=== PATIENT | male | born 1975 | race Two or more races ===

== ENCOUNTER 2019-01-30 19:51 | Inpatient (IN) | payer MEDICAID ==
[~2019-01-30] VITALS: Ht 182.9 cm; Wt 92.2 kg
--- NOTE | 2019-01-30 20:00 | NUR ---
PT AMBULATED TO LOBBY TO AWAIT ROOM PLACEMENT WITH STEADY GAIT ACCOMPANIED BY FAMILY.
[2019-01-30 20:02] VITALS: Ht 182.9 cm; Wt 92.2 kg
[2019-01-30 20:59] LABS: BASOPHIL % 0.2 % (0-2); PLATELET COUNT 211 x10^3mcL (130-400)
[2019-01-30 21:19] LABS: CALCIUM 8.3 mg/dL (8.5-10.1); CARBON DIOXIDE 26.9 mmol/L (21-32); CHLORIDE SERUM 95 mmol/L (98-107); CREATININE SERUM 1.3 mg/dL (0.7-1.3); GFR1 > 60 mL/min; GLUCOSE SERUM 120 mg/dL (74-106); POTASSIUM SERUM 3.7 mmol/L (3.5-5.1); SODIUM SERUM 133 mmol/L (136-145)
[2019-01-30 21:31] LABS: ALBUMIN 3.5 g/dL (3.4-5.0); ALKALINE PHOSPHATASE 73 U/L (46-116); ALT/SGPT 76 U/L (16-63); AST/SGOT 42 U/L (15-37); BILIRUBIN TOTAL 0.63 mg/dL (0.20-1.00); LIPASE 34 IU/L (73-393)
--- NOTE | 2019-01-30 21:34 | NUR ---
PT AAOX4, NO S/S OF DISTRESS NOTED. PT REPORTS ABD PAIN X 3 DAYS, WITH N/V. PT REPORTS VOMITING 4X TODAY. PT REPORTS VOMIT OCCURED AFTER DRINKING FLUIDS. PT RATES ABD PAIN 10/.
[2019-01-30 21:48] LABS: TOTAL PROTEIN, SERUM 8.3 g/dL (6.4-8.2)
--- NOTE | 2019-01-30 22:06 | NUR ---
PT SLEEPING IN BED, AROUSABLE BY VERBAL STIMULI. PT REPORTS PAIN HAS DECREASED TO A 3/10 AND IS TOLERABLE. PT FAMILY AT BEDSIDE.
--- NOTE | 2019-01-30 22:23 | NUR ---
PT BACK FROM CT WITH OUT INCIDENT.
--- NOTE | 2019-01-30 22:26 | NUR ---
PT INSTRUCTED TO GIVE CLEAN CATCH URINE SAMPLE. PT AMBULATED TO AND FROM RESTROOM WITH STEADY GAIT.
--- NOTE | 2019-01-30 23:56 | NUR ---
ATTMEPTED TO INSERT NG TUBE INTO LEFT NOSTRIL. PT REQUESTED WE STOP INSERTION. BLEEDED NOTED, PRESSURES APPLIED TO NOSTRIL. NO ACTIVE BLEEDING NOTED. DR HERNANDES MADE AWARE.
--- NOTE | 2019-01-31 00:09 | NUR ---
PT SITTING UP IN [place] TALKING WITH RESIDENT AT BEDSIDE.
--- NOTE | 2019-01-31 00:31 | NUR ---
PT REPORT GIVEN TO VIKY BROWN ON MED SURG FLOOR TO ASSUME PRIMARY CARE OF PT
--- NOTE | 2019-01-31 00:40 | NUR ---
PT TAKEN UPSTAIRS TO MED SURG FLOOR FOR FURTHER CARE. PT WAS WHEELED ON ED GURNEY BY EMT AMY. NO INCIDENCE NOTED
[2019-01-31 00:45] VITALS: BP 109/76
--- NOTE | 2019-01-31 00:48 | NUR ---
RECEIVED PT FROM ED VIA IBETH. ORIENTED PT TO ROOM AND SURROUNDINGS. IV NOTED TO RAC PATENT AND INTACT. INSTRUCTED PT ON THE USE OF CALL LIGHT FOR ASSISTANCE. ENDORSED PT TO PRIMARY NURSE CORRINA
--- NOTE | 2019-01-31 00:57 | NUR ---
RECEIVED AND SEEN PT IN BED. AOX4. C/O ABDOMINAL PAIN 03/08. WILL MEDICATE ORDERED. BED IN LOWEST POSITION,CALL LIGHT WITHIN REACH. WILL CONTINUE TO MONITOR.
[2019-01-31 01:15] LABS: MAGNESIUM 1.5 mg/dL (1.8-2.4); PHOSPHOROUS 2.7 mg/dL (2.5-4.9)
[2019-01-31 01:16] LABS: CHOLESTEROL/HDL RATIO 4.2
--- NOTE | 2019-01-31 01:49 | NUR ---
PT C/O ABDOMINAL PAIN 03/08. MEDICATED TORADOL 15MG IV ORDERED. WILL CONTINUE TO MONITOR.
[2019-01-31 02:14] LABS: UA SPECIFIC GRAVITY <=1.005 (1.005-1.035); microscopic required? YES; urine erythrocyte NEGATIVE (NEGATIVE)
[2019-01-31 02:25] LABS: AMPHETAMINE QUAL UR POSITIVE (See below)
[2019-01-31 05:11] VITALS: BP 112/71
--- NOTE | 2019-01-31 05:23 | NUR ---
PT APPEARS TO BE SLEEPING. NO S/S OF PAIN AT THIS TIME. NO DISTRESS NOTED. BED IN LOWEST POSITION,CALL LIGHT WITHIN REACH. WILL CONTINUE TO MONITOR.
--- NOTE | 2019-01-31 07:22 | NUR ---
RECEIVED REPORT FROM [facility] AT BEDSIDE PERFORMING ULTRASOUND. PATIENT RESTING WITH EYES CLOSED, BREATHING E/U. IV DISLODGED, CATH INTACT. NO ACTIVE BLEEDING OBSERVED. WILL START NEW IV.
--- NOTE | 2019-01-31 07:22 | NUR ---
CARE ENDORSED TO DAY NURSE HEENA.
--- NOTE | 2019-01-31 07:45 | NUR ---
NEW IV STARTED TO RFA 20G, NS FLUSHED SITE WNL. PATIENT TOLERATED WELL, A/OX4 ABLE TO MAKE NEEDS KNOWN AND FOLLOW COMMANDS. LUNGS CTA, NO RESP DISTRESS NOTED ON RA. DENIES CHEST PAIN OR HEADACHE. BOWEL SOUNDS ACTIVE, PATIENT REPORTS DIARRHEA THIS MORNING, ABD TENDER/SOFT, REPORTS SHARP PAIN TO ABD 8/10 REQUESTING FOR PAIN MED. WILL GIVE MED PER EMAR. STATES MILD NAUSEA PRESENT. PERIPHERAL PULSES PALPABLE, NO EDEMA. CALL LIGHT WITHIN REACH. WILL CONT TO MONITOR.
[2019-01-31 07:59] LABS: CALCIUM 7.8 mg/dL (8.5-10.1); CARBON DIOXIDE 24.7 mmol/L (21-32); CHLORIDE SERUM 103 mmol/L (98-107); CREATININE SERUM 0.9 mg/dL (0.7-1.3); GFR1 > 60 mL/min; GLUCOSE SERUM 112 mg/dL (74-106); POTASSIUM SERUM 3.6 mmol/L (3.5-5.1); SODIUM SERUM 138 mmol/L (136-145)
[2019-01-31 08:00] LABS: BASOPHIL % 0.3 % (0-2); MAGNESIUM 2.2 mg/dL (1.8-2.4); PHOSPHOROUS 2.1 mg/dL (2.5-4.9); PLATELET COUNT 188 x10^3mcL (130-400); RED CELL DISTRIBUTION WIDTH 12.9 % (11.5-14.5)
[2019-01-31 08:09] VITALS: BP 117/78
--- NOTE | 2019-01-31 09:45 | NUR ---
PATIENT BACK FROM RAD, XR-SBFT STILL IN PROGRESS, PER TECH- KEEP PATIENT NPO. FAMILY AT BEDSIDE. PER PATIENT TYLENOL WAS MINIMALLY EFFECTIVE AND PAIN STILL PRESENT. NO OTHER PAIN MED AVAILABLE TO GIVE, WILL NOTIFY RESIDENT.
--- NOTE | 2019-01-31 10:30 | NUR ---
DR KOCH AND TEAM AT BEDSIDE, INFORMED PATIENT OF PLAN OF CARE, PATIETN AND FAMILY COOPRATIVE WITH CARE. DR DOLAN MADE AWARE OF PAIN AND NEED FOR PAIN MEDICATION OTHER THAN TYLENOL. ANTICIPATING NEW ORDERS.
[2019-01-31 11:50] VITALS: BP 104/70
--- NOTE | 2019-01-31 13:25 | NUR ---
Discount pharmacy card and list to low cost medical clinics given to patient by Gurvinder Hodgson.
--- NOTE | 2019-01-31 14:18 | NUR ---
CALLED TO [facility].
--- NOTE | 2019-01-31 17:05 | NUR ---
PATIENT TOLERATED JELLO, JUICE AND WATER WELL. DENIES ANY ABD PAIN OR NAUSEA AT THIS TIME. WILL CONT TO MONITOR.
[2019-01-31 17:38] VITALS: BP 106/67
--- NOTE | 2019-01-31 19:30 | NUR ---
PT IS A/O x4. A BIT DROWSY. MED SURG. DENIES ANY CHEST PAIN OR PRESSURE. PULSES ARE PRESENT. NO EDEMA NOTED. LUNGS CLEAR IN ALL HILARIO. ON RA, DENIES ANY SOB. EQUAL CHEST RISE AND FALL. NO SIGN OF RESP DISTRESS. BOWEL SOUNDS PRESENT. PT C/O DIARRHEA. ABD SOFT AND FLAT. DENIES ANY ABD PAIN OR DISTRESS. SKIN INTACT. IV ON RFA INTACT AND PATENT. NO SIGN OF INFILTRATION OR IRRITATION NOTED. BED IS AT LOWEST SETTING. CALL LIGHT WITHIN REACH. WILL CONTIUE TO MONITOR.
[2019-01-31 21:08] VITALS: BP 113/78
--- NOTE | 2019-02-01 01:37 | NUR ---
PT IS RESTING IN BED WITH BOTH EYES CLOSED. BREATHING EVEN AND UNLABORED. NO SIGN OF DISTRESS NTOED. IV IS INTACT. BED IS AT LOWEST SETTING. CALL LIGHT WITHIN REACH. WILL CONTINUE TO MONITOR.
[2019-02-01 05:58] VITALS: BP 116/79
--- NOTE | 2019-02-01 06:18 | NUR ---
PT IS RESTING IN BED WITH BOTH EYES CLOSED. BREATHING EVEN AND UNLABORED. NO SIGN OF DISTRESS NOTED. NO ACUTE EVENT OCCURED AT NIGHT. BED IS AT LOWEST SETTING. CALL LIGHT WITHIN REACH. WILL ENDORSE TO AM NURSE.
[2019-02-01 06:21] LABS: CALCIUM 7.6 mg/dL (8.5-10.1); CARBON DIOXIDE 24.2 mmol/L (21-32); CHLORIDE SERUM 107 mmol/L (98-107); CREATININE SERUM 0.8 mg/dL (0.7-1.3); GFR1 > 60 mL/min; GLUCOSE SERUM 106 mg/dL (74-106); MAGNESIUM 1.8 mg/dL (1.8-2.4); PHOSPHOROUS 2.5 mg/dL (2.5-4.9); POTASSIUM SERUM 3.7 mmol/L (3.5-5.1); SODIUM SERUM 140 mmol/L (136-145)
[2019-02-01 06:26] LABS: BASOPHIL % 0.2 % (0-2); PLATELET COUNT 184 x10^3mcL (130-400)
--- NOTE | 2019-02-01 07:50 | NUR ---
PATIENT SLEEPING, EASILY ARROUSABLE. BOWEL SOUNDS ACTIVE, DENIES N/V. REPORTS HAVING DIARRHEA. DENIES ABD PAIN AT THIS TIME. ABD SOFT. ADMITS TO PASSING GAS. IV SITE WNL. CALL LIGHT WITHIN REACH. WILL CONT TO MONITOR.
[2019-02-01 08:35] VITALS: BP 134/77
--- NOTE | 2019-02-01 08:38 | NUR ---
PATIENT AMBULATING IN HALLWAY, STEADY GAIT.
[2019-02-01 11:42] VITALS: BP 134/77
--- NOTE | 2019-02-01 12:10 | NUR ---
PATIENT ACCIDENTLY PULLED IV OUT WHILE GOING TO THE RESTROOM. CATH INTACT. NO ACTIVE BLEEDING TO RFA, BANDAID APPLIED. DISCHARGE ORDER IN PROGRESS. WILL MONITOR PATIENT'S TOLERATION FOR LUNCH DIET.
== END 2019-02-01 13:00 | disposition home or self-care (01) | DRG 247 ==
LOC: ED 19:51 → MU 23:50
PROVIDERS: ADMIT Internal Medicine
DX: K56.7 Ileus, unspecified (principal); E83.42 Hypomagnesemia; E87.1 Hypo-osmolality and hyponatremia; R74.0 Nonspecific elevation of levels of transaminase and lactic acid dehydrogenase [LDH]; F15.188 Other stimulant abuse with other stimulant-induced disorder; E78.5 Hyperlipidemia, unspecified; Z68.27 Body mass index [BMI] 27.0-27.9, adult
CPT/HCPCS: 83880; C9113; G0378; G0480; J1885; J2270; J2405; J3475; J7030; Q0092; Q9967

== ENCOUNTER → 2019-02-08 | Outpatient (CLI) | payer MEDICAID | END | disposition home or self-care (01) | LOC: RD 11:27 | DX: S69.92XA Unspecified injury of left wrist, hand and finger(s), initial encounter (principal); X58.XXXA Exposure to other specified factors, initial encounter; Y92.9 Unspecified place or not applicable ==